=== PATIENT | male | born 1945 | race Caucasian/White ===

== ENCOUNTER → 2021-04-29 15:31 | Outpatient (BNVA) | payer MEDICARE, SELFPAY | PROVIDERS: PCP Internal Medicine; Visit Provider Hospitalist | DX: G47.33 Obstructive sleep apnea (adult) (pediatric) (principal); Z99.89 Dependence on other enabling machines and devices | CPT/HCPCS: 99202 ==

== ENCOUNTER → 2022-11-17 13:22 | Outpatient (BNVA) | payer MEDICARE, SELFPAY | PROVIDERS: PCP Internal Medicine; Visit Provider Hospitalist | DX: G47.33 Obstructive sleep apnea (adult) (pediatric) (principal); Z99.89 Dependence on other enabling machines and devices | CPT/HCPCS: 99212 ==

== ENCOUNTER 2023-04-27 12:54 | Outpatient (AMB) | payer MEDICARE, SELFPAY ==
[2023-04-27 13:14] VITALS: BP 128/70; PULSE 60; O2SAT 97; BMI 27.6
--- NOTE | 2023-04-27 13:14 | MHC.OFFVIS ---
Intake Vital Signs 04/27/23 13:14 Height 6 ft 2 in Weight 215 lb BMI 27.6 BP 128/70 Blood Pressure Location Lt brachial Position Sitting Pulse 60 Pulse Source Pulse Oximeter Pulse Oximetry (%) 97 Oxygen Delivery Method Room Air Intake Visit Reasons: Obstructive sleep apnea Bottle Blowing Machine Tender Required: No Allergies No Known Allergies Allergy (Verified 04/27/23 13:17) HPI HPI Comments History of Present Illness Details The patient is a 78-year-old gentleman with known history of obstructive sleep apnea. He has been on CPAP for many years. He has a very old machine. the therapy has been affecting beneficial. He does use it every night for more than 4 hours. He does have a Respironics machine that is now on recall. He did receive the machine and now he is waiting for replacement. He will be getting the dream Station 2. Once he does get the machine will be able to adjusted further. He does use a fullface mask. he does complaint of discomfort on the nasal bridge. He also has a deviated septum. I did have a sample F 30 mask available that fit him just fine the medium-sized. Therefore I will request additional supplies to his [employer] company, [employer]. The patient denies any underlying respiratory complaints. Denies any dyspnea on exertion. Overall he is doing well from a respiratory status. 11/17/2022 the patient is here for a pulmonary follow-up visit. The patient finally got his new machine. He has not use that as of yet. He did bring it in though we did evaluated. It is an APAP a Respironics dream Station 1. He does have a fullface mask. His mask fits well. The CPAP therapy has been affecting beneficial for him for many years. Will go ahead and have him start this therapy. He does have a medium F20 mask. I will request supplies from his [employer]. otherwise patient is doing well denies any underlying respiratory symptoms. 04/27/2023 the patient is here for a pulmonary follow-up visit. Overall the patient has been doing well. He did get his new CPAP. He does have a dream Station from [employer]. Currently set at 6-16. His AHI is down to 2. Seems to be tolerating well. Did increase slightly to 17/17. Awaiting final download from his CPAP. I am curious if he is having some central apneas. I did reach out to the [employer] to get a download. His therapy has been affecting beneficial he does use it for more than 4 hours a night actually averaging more on 9 hours. He denies any respiratory complaints. He does have on exam a systolic murmur. He will follow up closely with primary care doctor regarding that. [facility] Medical History (Updated 04/27/23 @ 13:38 by Boubacar Alvarez MD) LUZ MARIA on CPAP Social History (Updated 04/29/21 @ 15:41 by ESTEFANY Hart) Patient Tobacco Use Status: Former Tobacco user Tobacco use type: Cigarette Years Smoked: 35 years Review of Systems Const Denies night sweats ENT Denies change in voice, Denies lip swelling, Denies mouth pain, Reports nasal congestion, Reports nasal discharge and Denies tongue swelling Card Denies chest pain Resp Reports cough GI Denies abdominal pain Musc Denies no additional complaints Neuro Denies Neuro-related abnormal movements Psych Denies no additional complaints Candelario/Lymph Denies easy bleeding and Denies lymphadenopathy Aller/Immun Denies lip swelling and Denies tongue swelling Physical Exam Vital Signs: Last Vital Signs Pulse 60 04/27/23 13:14 BP 128/70 04/27/23 13:14 Pulse Ox 97 04/27/23 13:14 Oxygen Delivery Method Room Air 04/27/23 13:14 BMI result Body Mass Index 27.6 Const General: alert Neck Neck: Yes normal visual inspection, Yes full ROM and Yes no lymphadenopathy Chest Chest palpation & inspection: normal inspection of the chest Resp Auscultation: clear to auscultation bilaterally Cardio Rate: regular rate Rhythm: regular rhythm Heart sounds: S1 normal heart sound present, S2 normal heart sound present and Murmur heart sound present GI Palpation (GI): Soft to palpation and nontender Auscultation: normal bowel sounds Skin General skin exam: rashes and/or lesions noted Assessment & Plan Assessment & Plan (1) LUZ MARIA on CPAP: Code(s): G47.33 - Obstructive sleep apnea (adult) (pediatric); Z99.89 - Dependence on other enabling machines and devices (2) Murmur: Code(s): R01.1 - Cardiac murmur, unspecified Plan cont APAP therapy, adjusted pressures Ramp 5, APAP 7-17 Requesting supplies from [employer] Requesting F20 medium mask F/U with PCP re: murmur F/U in 1 yr Coding Level of Care Code Est Pt Level 4 (44155) Diagnoses LUZ MARIA on CPAP G47.33; Z99.89 Murmur R01.1 Time Spent (min) 17
== END 2023-04-27 13:38 | disposition home or self-care (01) ==
PROVIDERS: PCP Internal Medicine; Visit Provider Hospitalist
DX: G47.33 Obstructive sleep apnea (adult) (pediatric) (principal); Z99.89 Dependence on other enabling machines and devices; R01.1 Cardiac murmur, unspecified
CPT/HCPCS: 99214

== ENCOUNTER → 2023-04-27 12:54 | Outpatient (BNVA) | payer MEDICARE, SELFPAY | PROVIDERS: PCP Internal Medicine; Visit Provider Hospitalist | DX: G47.33 Obstructive sleep apnea (adult) (pediatric) (principal); R01.1 Cardiac murmur, unspecified; Z99.89 Dependence on other enabling machines and devices | CPT/HCPCS: 99212 ==

== ENCOUNTER 2024-04-26 12:48 | Outpatient (AMB) | payer MEDICARE, SELFPAY ==
--- NOTE | 2024-04-26 13:04 | MHC.OFFVIS ---
Vital Signs 04/26/24 13:05 Weight 232 lb 9.403 oz BP 138/68 Blood Pressure Location Lt brachial Position Sitting Pulse 66 Pulse Source Pulse Oximeter Pulse Oximetry (%) 96 Oxygen Delivery Method Room Air Intake Visit Reasons: luz maria Allergies No Known Allergies Allergy (Verified 04/26/24 13:09) Medication List - Last Reconciled 04/26/24 by Kierra Gomez LPN atorvastatin 80 mg PO DAILY cholecalciferol (vitamin D3) 50 mcg PO .every other day CPAP (CPAP Machine/Device) As directed metoprolol succinate ER 50 mg PO DAILY multivitamin combination no.55 tabs PO PRN omeprazole 40 mg PO DAILY sennosides (Senokot) 8.6 mg PO BEDTIME HPI Comments Details: The patient is a 79-year-old gentleman with known history of obstructive sleep apnea. He has been on CPAP for many years. He has a very old machine. the therapy has been affecting beneficial. He does use it every night for more than 4 hours. He does have a Respironics machine that is now on recall. He did receive the machine and now he is waiting for replacement. He will be getting the dream Station 2. Once he does get the machine will be able to adjusted further. He does use a fullface mask. he does complaint of discomfort on the nasal bridge. He also has a deviated septum. I did have a sample F 30 mask available that fit him just fine the medium-sized. Therefore I will request additional supplies to his DME company, [employer]. The patient denies any underlying respiratory complaints. Denies any dyspnea on exertion. Overall he is doing well from a respiratory status. 11/17/2022 the patient is here for a pulmonary follow-up visit. The patient finally got his new machine. He has not use that as of yet. He did bring it in though we did evaluated. It is an APAP a Respironics dream Station 1. He does have a fullface mask. His mask fits well. The CPAP therapy has been affecting beneficial for him for many years. Will go ahead and have him start this therapy. He does have a medium F20 mask. I will request supplies from his [employer] company. otherwise patient is doing well denies any underlying respiratory symptoms. 04/27/2023 the patient is here for a pulmonary follow-up visit. Overall the patient has been doing well. He did get his new CPAP. He does have a dream Station from [employer]. Currently set at 6-16. His AHI is down to 2. Seems to be tolerating well. Did increase slightly to 7-17. Awaiting final download from his CPAP. I am curious if he is having some central apneas. I did reach out to the [employer] to get a download. His therapy has been affecting beneficial he does use it for more than 4 hours a night actually averaging more on 9 hours. He denies any respiratory complaints. He does have on exam a systolic murmur. He will follow up closely with primary care doctor regarding that. 04/26/2024 the patient is here for a pulmonary follow-up visit. Overall the patient has been doing well. He continues use the Dreamstation Respironics APAP. Print setting 7-17. He does use a fullface mask. His AHI is down to 1.6. This is an older machine. But still seems to be working okay. Will see if we can not continue working for least another year and then next year will consider replacing it. From a cardiac standpoint he had a full cardiac workup and he was reassured. Denies any respiratory complaints. Will follow-up in a year's time. [facility] Medical History (Updated 04/27/23 @ 13:38 by Boubacar Alvarez MD) LUZ MARIA on CPAP Social History (Updated 04/29/21 @ 15:41 by ESTEFANY Hart) Patient Tobacco Use Status: Former Tobacco user Tobacco use type: Cigarette Years Smoked: 35 years Review of Systems Const Denies night sweats ENT Denies change in voice, Denies lip swelling, Denies mouth pain, Reports nasal congestion, Reports nasal discharge and Denies tongue swelling Card Denies chest pain Resp Reports cough GI Denies abdominal pain Musc Denies no additional complaints Neuro Denies Neuro-related abnormal movements Psych Denies no additional complaints Candelario/Lymph Denies easy bleeding and Denies lymphadenopathy Aller/Immun Denies lip swelling and Denies tongue swelling Physical Exam Vital Signs: Last Vital Signs Pulse 66 04/26/24 13:05 BP 138/68 04/26/24 13:05 Pulse Ox 96 04/26/24 13:05 Oxygen Delivery Method Room Air 04/26/24 13:05 Const General: alert Neck Neck: Yes normal visual inspection, Yes full ROM and Yes no lymphadenopathy Chest Chest palpation & inspection: normal inspection of the chest Resp Effort & Inspection: normal respiratory effort Auscultation: clear to auscultation bilaterally Cardio Rate: regular rate Rhythm: regular rhythm Heart sounds: S1 normal heart sound present, S2 normal heart sound present and Murmur heart sound present GI Palpation (GI): Soft to palpation and nontender Auscultation: normal bowel sounds Skin General skin exam: rashes and/or lesions noted Assessment & Plan Assessment & Plan (1) LUZ MARIA on CPAP: Code(s): G47.33 - Obstructive sleep apnea (adult) (pediatric); Z99.89 - Dependence on other enabling machines and devices Category: Medical Plan cont APAP therapy, adjusted pressures Ramp 5, APAP 7-17 Requesting supplies from [employer] medium mask F/U in 1 yr Coding Level of Care Code Est Pt Level 3 (40770) Diagnoses LUZ MARIA on CPAP G47.33; Z99.89 Time Spent (min) 15
[2024-04-26 13:05] VITALS: BP 138/68; PULSE 66; O2SAT 96
--- OUTSIDE RECORDS SUMMARY | 2024-04-27 21:17 | XMS_ITS | Continuity of Care Document ---
Author Organization [facility] Address [address] [address]- Support Name Relationship Address Phone ANNA MARIEBERG, SAADIA Personal Relationship Unknown Un available HAGBERG, SAADIA spouse Unknown Unavailable HAGBERG, SAADIA Personal Relationship Unknown Un available HAGBERG, SAADIA Personal Relationship Unknown Un available HAGBERG, MANDY child Unknown Unavailable HAGBERG, SAADIA Personal Relationship Unknown Un available HAGBERG, SAADIA Personal Relationship Unknown Un available HAGBERG, SAADIA Personal Relationship Unknown Un available HAGBERG, SAADIA Personal Relationship Unknown Un available HAGBERG, SAADIA Personal Relationship Unknown Un available HAGBERG, SAADIA Personal Relationship Unknown Un available HAGBERG, SAADIA Personal Relationship Unknown Un available HAGBERG, SAADIA Personal Relationship Unknown Un available HAGBERG, SAADIA Personal Relationship Unknown Un available HAGBERG, SAADIA Personal Relationship Unknown Un available HAGBERG, SAADIA Personal Relationship Unknown Un available HAGBERG, SAADIA Personal Relationship Unknown Un available HAGBERG, SAADIA Personal Relationship Unknown Un available HAGBERG, SAADIA Personal Relationship Unknown Un available HAGBERG, SAADIA Personal Relationship Unknown Un available HAGBERG, SAADIA Personal Relationship Unknown Un available HAGBERG, SAADIA Personal Relationship Unknown Un available HAGBERG, SAADIA Personal Relationship Unknown Un available HAGBERG, SAADIA Personal Relationship Unknown Un available HAGBERG, SAADIA Personal Relationship Unknown Un available HAGBERG, SAADIA Personal Relationship Unknown Un available HAGBERG, SAADIA Personal Relationship Unknown Un available HAGBERG, SAADIA Personal Relationship Unknown Un available HAGBERG, SAADIA Personal Relationship Unknown Un available Care Team Providers Care Driller Multiple Spindle Name Role Phone Nataly Abad MD Primary Care Physician [phone] Encounter [facility] Date(s): 03/15/24 - 04/14/24 [facility] [address] [place], [place] [address] Encounter Type: Triage Allergies, Adverse Reactions, Alerts No Known Allergies Immunizations Given and Recorded Vaccine Date Status Refusal Reason SARS-CoV-2(COVID-19)mRNA-LNP vac([id number]) 04/06/23 Recorded influenza virus vaccine, inactivated 02/24/23 Cecilio rded influenza virus vaccine, inactivated 03/03/22 Cecilio rded influenza virus vaccine, inactivated 02/13/21 Cecilio rded influenza virus vaccine, inactivated 02/15/18 Cecilio rded influenza virus vaccine, inactivated 02/27/17 Cecilio rded influenza virus vaccine, inactivated 03/08/16 Cecilio rded influenza virus vaccine, inactivated 02/08/14 Cecilio rded influenza virus vaccine, inactivated 02/22/13 Cecilio rded [id number] 12y+ bivalent booster vax 03/12/22 Recorded zoster vaccine, inactivated 01/07/22 Recorded zoster vaccine, inactivated 10/28/21 Recorded SARS-CoV-2 mRNA ([id number]) vax 09/09/21 Recorded pneumococcal 23-valent vaccine 06/10/21 Recorded SARS-CoV-2 (COVID-19) mRNA BNT-162b2 vac 03/25/21 Recorded SARS-CoV-2 (COVID-19) mRNA BNT-162b2 vac 1 07/23/20 Recorded SARS-CoV-2 (COVID-19) mRNA-1273 vaccine 2 07/02/20 Recorded Influenza Virus Vaccine (oldterm) 3 02/10/20 Recor ded tetanus/diphtheria/pertussis, acel(Tdap) 08/30/18 Given pneumococcal 13-valent vaccine 02/01/18 Recorded Zostavax (oldterm) 03/17/14 Recorded 1Result Comment: Done at [facility]. 2Result Comment: Done at [facility]. 3Result Comment: Done at [facility] Medications aspirin 81 mg oral delayed release tablet 81 mg, 1, tablet, By Mouth, Daily, Refills 0, Maintenance, 11/11/23 2:12:00 PM EDT, Partial fill upon patient request if the prescription is for a schedule II opioid drug. Start Date: 11/11/23 Status: Ordered Repeat number: 1 atorvastatin 80 mg oral tablet 1 tablet, By Mouth, Daily, # 90 tablet, 1 Refills, Maintenance, 03/15/24 7:28:00 AM EDT, [facility], 188, cm, 12/28/23 14:39:00 EDT, Height, 101.9, kg, 12/28/23 13:50:00 EDT, Dry Weight Start Date: 03/15/24 Status: Ordered Quantity: 90.0 Unit: tablet Repeat number: 2 Daily Multiple Vitamins 1 tablet, By Mouth, Daily, 0 Refills, Maintenance, 11/09/12 1:12:10 PM EDT Start Date: 11/09/12 Status: Ordered Repeat number: 1 Metoprolol Succinate ER 50 mg oral tablet, extended release 1, tablet, By Mouth, Daily, (DOSE REDUCED FROM 100MG TO 50MG DUE TO BRADYCARDIA), # 90 tablet, Refills 1, Maintenance, 04/01/24 9:45:00 AM EST, Route to Pharmacy Electronically, [facility], 188, cm, 12/28/23 14:39:00 EDT, Height, 101.9, kg, 12/28/23 13:50:00 EDT, Dry Weight Start Date: 04/01/24 Status: Ordered Quantity: 90.0 Unit: tablet Repeat number: 1 nitroglycerin 0.4 mg sublingual tablet 0 Refills, Maintenance, 07/03/23 9:08:00 AM EST, Partial fill upon patient request if the prescription is for a schedule II opioid drug. Start Date: 07/03/23 Status: Ordered Repeat number: 1 omeprazole 40 mg oral enteric coated capsule 1 capsule, By Mouth, Daily, # 90 capsule, 3 Refills, Maintenance, 07/03/23 9:07:00 AM EST, [facility], 188, cm, 07/03/23 8:30:00 EST, Height Start Date: 07/03/23 Status: Ordered Quantity: 90.0 Unit: capsule Repeat number: 4 Prevagen = 50 mcg, By Mouth, Daily, 0 Refills, Maintenance, 06/10/22 10:02:00 AM EST, Partial fill upon patient request if the prescription is for a schedule II opioid drug. Start Date: 06/10/22 Status: Ordered Repeat number: 1 Senna Tablet By Mouth, Daily at bedtime, Maintenance, 11/09/12 1:12:32 PM EDT Start Date: 11/09/12 Status: Ordered Repeat number: 1 Vitamin B12 0 Refills, Maintenance, 11/11/23 2:12:00 PM EDT, Partial fill upon patient request if the prescription is for a schedule II opioid drug. Start Date: 11/11/23 Status: Ordered Repeat number: 1 Vitamin D3 1000 intl units oral capsule 3 capsule = 3,000 International_Units, By Mouth, Daily, 0 Refills, Maintenance, 03/01/18 1:31:35 PMEDT Start Date: 03/01/18 Status: Ordered Repeat number: 1 Problem List Condition Confirmation Course Effective Dates Status H ealth Status Informant AAA - Abdominal aortic aneurysm Confirmed Active Carotid artery stenosis 1 Confirmed Active Pilonidal cyst Confirmed Active Hyperlipidemia Confirmed Active Hypertension Confirmed Active LUZ MARIA (obstructive sleep apnea) Confirmed Active 1Per vascular surgery Sep, 2021 carotid duplex showed: MILLY 50-69%; LICA 1-49%. Social History Social History Type Response Smoking Status Former smoker, quit more than 30 days ago entered on: 11/04/22 Sex Sex Representation Male (finding) Patient Care team information Care Team Personnel Name: Pollo KAM, Nataly June Position: [facility] Physician - Primary Care Member Role: PCP Address: [address] [place] [address] Adult & [place], [place] [address] Telecom: Care Team Related Persons Name: SAADIA VORA Name: MANDY VORA Insurance Providers Guarantor name: HECTOR VORA Health Plan Information #: 1 Payer: ISABEL Member Number: ISABEL Policy Number: NA Group Number: NA
== END 2024-04-26 13:26 | disposition home or self-care (01) ==
PROVIDERS: PCP Internal Medicine; Visit Provider Hospitalist
DX: G47.33 Obstructive sleep apnea (adult) (pediatric) (principal); Z99.89 Dependence on other enabling machines and devices
CPT/HCPCS: 99213

== ENCOUNTER → 2024-04-26 12:48 | Outpatient (BNVA) | payer MEDICARE, SELFPAY | PROVIDERS: PCP Internal Medicine; Visit Provider Hospitalist | DX: G47.33 Obstructive sleep apnea (adult) (pediatric) (principal); Z99.89 Dependence on other enabling machines and devices | CPT/HCPCS: 99212 ==